=== PATIENT | female | born 2000 | race Caucasian/White ===

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

== ENCOUNTER → 2018-01-04 | Outpatient (CLI) | payer OTHER | LOC: M RAD 10:05 | DX: N92.0 Excessive and frequent menstruation with regular cycle (principal) ==

== ENCOUNTER → 2018-11-01 | Outpatient (CLI) | payer OTHER ==
[2018-11-01 11:23] LABS: BASO # 0.1 10^3/uL (0.0-0.2); BASO % 1.1 % (0.0-1.0); EOS # 0.5 10^3/uL (0.0-0.50); EOS % 7.9 % (0.0-3.0); HEMATOCRIT 38.1 % (36.0-47.0); HEMOGLOBIN 12.7 g/dl (12.0-15.5); LYMPH # 2.2 10^3/uL (1.5-6.5); MEAN CORPUSCULAR HEMOGLOBIN 29.3 pg (27.0-33.0); MEAN CORPUSCULAR HGB CONC 33.3 g/dl (32.0-36.5); MEAN CORPUSCULAR VOLUME 87.8 fl (80.0-96.0); MONO # 0.3 10^3/uL (0.0-0.8); MONO % 4.9 % (0.0-5.0); NEUTROPHILS # 3.5 10^3/uL (1.8-7.7); NEUTROPHILS % 52.8 % (36.0-66.0); PLATELET COUNT, AUTOMATED 370 10^3/uL (150-450); RED BLOOD COUNT 4.34 10^6/uL (4.00-5.40); WHITE BLOOD COUNT 6.6 10^3/uL (4.0-10.0)
== END ==
LOC: M LAB 10:58
PROVIDERS: ATTEND Physician Assistant
DX: N92.0 Excessive and frequent menstruation with regular cycle (principal)

== ENCOUNTER → 2019-01-29 | Outpatient (CLI) | payer OTHER ==
--- NOTE | 2019-01-29 09:51 | REP ---
MAXILLOFACIAL CT WITHOUT CONTRAST: HISTORY: Chronic maxillary sinusitis. COMPARISON: 03/09/2016 The patient is status post partial right uncinectomy. Minimal mucosal thickening is present in the ethmoid, maxillary and sphenoid sinuses. Mild mucosal thickening is present in the left frontal sinus. The right frontal sinus is clear. Mucosal thickening involves the left ostiomeatal unit. The middle and inferior nasal turbinates are partially paradoxical. There is shazia bullosa of the middle nasal turbinates. The nasal septum is midline. The cribriform plate, medial alves of the orbits and optic canals are intact. The carotid canals form a segment of the posterolateral alves of the sphenoid sinus. The sphenoid sinus septa insert into the internal carotid canal alves. IMPRESSION: 1. Postoperative change as described above. 2. Sinus mucosal thickening as described above. Electronically Signed by Jair Rosen MD 01/29/2019 10:07 A
== END ==
LOC: M RAD 09:10
PROVIDERS: ATTEND Otolaryngology
DX: J34.89 Other specified disorders of nose and nasal sinuses (principal)

== ENCOUNTER 2019-06-25 10:49 | Day surgery (SDC) | payer OTHER ==
[~2019-06-25] VITALS: Ht 170.2 cm; Wt 83.9 kg
[~2019-06-25 10:49] MED LIST: ARIP1TAB4 PO; CETI10CH PO; CLONI1TA PO; DEPO150I IM; DOCU100C16 PO; FLON1SPR; FLUO20CA8 PO; IBUP80TA PO; LIDOCAINE 1% MDV 20ML VIAL SQ PRN; LR 1,000 ML IV ONE; RANI1TAB38 PO; SYMB16INH INH; VENTAER INH; VYVA20CA PO
[2019-06-25 12:51] LABS: HCG, SERUM QUALITATIVE NEGATIVE (NEGATIVE)
[2019-06-25] MEDS ORDERED: dexameTHASONE 4 MG/ML 1ML VIAL (J1100) As Ordered ONE (12:58)
[2019-06-25] MEDS ORDERED: ONDANSETRON 4MG/2ML VIAL (J2405) As Ordered ONE (12:58)
[2019-06-25] MEDS ORDERED: LIDOCAINE 2% INJ 100 MG/5 ML SDV (FOR ANES.) As Ordered ONE (12:58)
[2019-06-25] MEDS ORDERED: PROPOFOL 200 MG/20 ML VIAL As Ordered ONE (12:58)
[2019-06-25] MEDS ORDERED: ROCURONIUM BROMIDE 50 MG/5 ML VIAL As Ordered ONE (12:58)
[2019-06-25] MEDS ORDERED: fentaNYL 100 MCG/2 ML INJECTION (J3010) As Ordered ONE (12:59)
[2019-06-25] MEDS ORDERED: MIDAZOLAM INJ 2 MG/2 ML VIAL (J2250) As Ordered ONE (12:59)
[2019-06-25] MEDS ORDERED: HYDROmorphone HCL 2 MG/ML 1ML VIAL (J1170) As Ordered ONE (14:21)
[2019-06-25] MEDS ORDERED: METOCLOPRAMIDE INJ 10MG/2ML VIAL (J2765) As Ordered ONE (14:22)
[2019-06-25] MEDS ORDERED: ACETAMINOPHEN 1000MG 100ML IV BTL (OFIRMEV) (J0131 PER 10MG) As Ordered ONE (14:24)
[2019-06-25] MEDS ORDERED: METHYLENE BLUE 0.5% (5MG/ML) 10 ML AMP (PROVAYBLUE)(Q9968 PER 1MG) As Ordered ONE (15:07)
[2019-06-25] MEDS ORDERED: SODIUM CHLORIDE 0.9% NASAL GEL 15GM (AYR) As Ordered ONE (15:09)
[2019-06-25] MEDS ORDERED: LIDOCAINE W/EPINEPHRINE 1% 20ML VIAL As Ordered ONE (15:09)
[2019-06-25] MEDS ORDERED: EPINEPHrine INJ 1 MG/ML 1ML AMP As Ordered ONE (15:09)
[2019-06-25] MEDS ORDERED: EPINEPHrine 1MG/ML INJ 30ML MD-VIAL As Ordered ONE (15:11)
[2019-06-25] MEDS ORDERED: SCOPOLAMINE 1MG TRANSDERMAL PATCH As Ordered ONE (15:30)
[2019-06-25] MEDS ORDERED: SCOPOLAMINE 1MG TRANSDERMAL PATCH TOP ONE (15:45)
[2019-06-25] MEDS ORDERED: SUGAMMADEX SODIUM 500 MG/5 ML VIAL (BRIDION) As Ordered ONE ×2 (16:56→17:21)
[2019-06-25] MEDS ORDERED: fentaNYL 100 MCG/2 ML INJECTION (J3010) IV PRN (18:15)
[2019-06-25] MEDS ORDERED: PERCOCET 5MG/325MG TAB PO PRN (18:15)
[2019-06-25] MEDS ORDERED: LR 1,000 ML IV SCH (18:15)
[2019-06-25] MEDS ORDERED: ONDANSETRON 4MG/2ML VIAL (J2405) IV PRN (18:15)
[2019-06-25] MEDS ORDERED: PERCOCET 5MG/325MG TAB As Ordered ONE (18:16)
[2019-06-25 18:40] VITALS: BP 126/56
--- NOTE | 2019-07-17 08:30 | RO ---
DATE OF PROCEDURE: 06/25/2019 PREOPERATIVE DIAGNOSES: 1. Chronic maxillary sinusitis. 2. Chronic ethmoid sinusitis. 3. Chronic frontal sinusitis. 4. Chronic rhinitis. 5. Hypertrophy of the inferior nasal turbinates. POSTOPERATIVE DIAGNOSES: 1. Chronic maxillary sinusitis. 2. Chronic ethmoid sinusitis. 3. Chronic frontal sinusitis. 4. Chronic rhinitis. 5. Hypertrophy of the inferior nasal turbinates. PROCEDURE PERFORMED: 1. Stereotactic surgery using the Brainlab system. 2. Bilateral endoscopic frontal sinusotomy using the balloon. 3. Bilateral endoscopic anterior ethmoidectomy. 4. Bilateral endoscopic maxillary antrostomy using the balloon as well as removal of the uncinate process remnants. 5. Bilateral inferior nasal turbinate Coblation. SURGEON: Dr. Cal Pressley METALSMITH APPRENTICE: ANESTHESIA: General. CLINICAL PREAMBLE: This 18-year-old woman has had endoscopic sinus surgery done at another hospital a few years ago. She developed recurrent sinus symptoms. CT scan of the sinuses revealed evidence of chronic rhinosinusitis. Physical examination revealed inferior nasal turbinate hypertrophy. Management options, including surgery listed above, have been discussed. The patient understood and consented to the procedure. OPERATING ROOM (OR) NARRATION: The patient was identified in preoperative holding and brought to the operating room in stable condition. In supine position on the operating table, patient was prepped and draped in the usual fashion for the procedure. The headband for the Brainlab system was attached to the forehead. Good surface matching was obtained between the test probe and the Brainlab system. At this time, both sides of the nasal cavity were packed using pledgets soaked in 1:1000 epinephrine. The pledgets were removed after a waiting period; both sides of the nasal cavity were inspected using 0-degree nasoendoscope. Uncinate process remnants were noted. Hypertrophy of the inferior nasal turbinate was also found. The anterior surface of the inferior middle nasal turbinates were infiltrated, both the right and left sides of the nasal cavity. The right frontal recess was carefully probed using the Acclarent balloon system. Illuminated guide was successfully introduced into the right frontal sinus cavity. There was positive illumination of the right frontal sinus. The balloon was advanced into the frontal recess area. Balloon was then inflated to 12 atmospheric pressure for 5 seconds. The frontal sinus was then irrigated using warm saline solution. At this time, the diseased anterior ethmoid air cells in the right nasal cavity were then successfully identified and resected using Blakesley forceps. Remnant of the right uncinate process was noted and then resected as well. The right maxillary antrum was identified using the balloon as well. The right maxillary sinus cavity was illuminated. The balloon was advanced into the right maxillary and then inflated to 12 atmospheric pressure for 5 seconds. After the successful dilation, the right maxillary sinus was then irrigated with warm saline solution as well. The same procedure was carried out to perform the left frontal sinusotomy with dilation using the balloon as well. The diseased left anterior ethmoid air cells were resected. The remnant of the left uncinate process was removed as well. Left maxillary antrostomy was successfully performed using the balloon, followed by irrigation of the left maxillary sinus. At this time, the Reflex Coblation wand was used to coblate the right inferior nasal turbinate in the submucosal plane. Three passes were made. The right inferior nasal turbinate was then outfractured as well. The same procedure was carried to coblate the left inferior nasal turbinate in the submucosal plane as well. The Propel stent was then successfully placed into the left and the right ostiomeatal complexes. At the end of the procedure, sponge and instrument counts were correct. No complication was encountered. Estimated blood loss was approximately 50 mL. General anesthesia was reversed, and patient was extubated and brought to the recovery room in stable condition.
== END 2019-06-25 19:19 | disposition home or self-care (01) ==
LOC: M SDC 10:49
PROVIDERS: ATTEND Otolaryngology
DX: J32.0 Chronic maxillary sinusitis (principal); J32.1 Chronic frontal sinusitis; J32.2 Chronic ethmoidal sinusitis; J34.3 Hypertrophy of nasal turbinates; J31.0 Chronic rhinitis; J45.909 Unspecified asthma, uncomplicated; F31.9 Bipolar disorder, unspecified; F90.9 Attention-deficit hyperactivity disorder, unspecified type; Z79.51 Long term (current) use of inhaled steroids; Z79.899 Other long term (current) drug therapy; F41.9 Anxiety disorder, unspecified
CPT/HCPCS: 30802; 31254; 31267; 31296; 84703; C2625; J0131; J1100; J1170; J2250; J2405; J2765; J3010; Q9968

== ENCOUNTER 2019-08-04 13:50 | Emergency (ER) | payer OTHER ==
[~2019-08-04] VITALS: Ht 170.2 cm; Wt 84.3 kg
[~2019-08-04 13:50] MED LIST changes: -LIDOCAINE 1% MDV 20ML VIAL SQ PRN; -LR 1,000 ML IV ONE
--- NOTE | 2019-08-04 16:41 | ECGEPIP ---
[facility] - ED Test Date: 2019-08-04 Pat Name: TANIA REIS Department: Room: - Gender: Female Building Cleaner: DEO : 2000 Requested By: MEHNAZ Alegria PA-C Order Number: [id number] Reading MD: Susi Posadas Measurements Intervals Laverne Rate: 100 P: 61 ME: 134 QRS: 57 QRSD: 87 T: 27 QT: 341 QTc: 440 Interpretive Statements SINUS TACHYCARDIA ABNORMAL RHYTHM ECG NSTTW abnormalities NO PRIOR Electronically Signed on 08-04-2019 16:40:54 EST by Susi Posadas
[2019-08-04 17:09] LABS: AMPHETAMINES LEVEL URINE NEGATIVE (NEGATIVE); BARBITURATES URINE NEGATIVE (NEGATIVE); BENZODIAZEPINES URINE NEGATIVE (NEGATIVE); CANNABINOIDS URINE NEGATIVE (NEGATIVE); COCAINE METABOLITE URINE NEGATIVE (NEGATIVE); METHADONE URINE NEGATIVE (NEGATIVE); OPIATES URINE NEGATIVE (NEGATIVE); PHENCYCLIDINE URINE NEGATIVE (NEGATIVE)
[2019-08-04 17:22] LABS: BASO # 0.1 10^3/uL (0.0-0.2); BASO % 0.6 % (0.0-1.0); EOS # 0.5 10^3/uL (0.0-0.5); EOS % 5.5 % (0.0-3.0); HEMATOCRIT 42.1 % (36.0-47.0); HEMOGLOBIN 13.9 g/dl (12.0-15.5); LYMPH # 2.8 10^3/uL (1.5-5.0); LYMPH % 29.6 % (24.0-44.0); MEAN CORPUSCULAR HEMOGLOBIN 29.4 pg (27.0-33.0); MONO # 0.6 10^3/uL (0.0-0.8); MONO % 6.6 % (0.0-5.0); NEUTROPHILS # 5.5 10^3/uL (1.5-8.5); NEUTROPHILS % 57.4 % (36.0-66.0); PLATELET COUNT, AUTOMATED 395 10^3/uL (150-450); RED BLOOD COUNT 4.73 10^6/uL (4.00-5.40); WHITE BLOOD COUNT 9.6 10^3/uL (4.0-10.0)
[2019-08-04 17:38] LABS: BLOOD UREA NITROGEN 9 MG/DL (7-18); CALCIUM LEVEL 9.3 MG/DL (8.5-10.1); CARBON DIOXIDE LEVEL 23 MEQ/L (21-32); CHLORIDE LEVEL 111 MEQ/L (98-107); CK-MB VALUE MASS < 1.0 NG/ML (<3.6); CPK CREATINE PHOSPHOKINASE 74 U/L (26-192); CREATININE FOR GFR 0.72 MG/DL (0.55-1.30); ETHYL ALCOHOL (ETHANOL) < 0.003 % (0.000-0.010); FREE T4 1.14 NG/DL (0.78-1.33); GLUCOSE, FASTING 81 MG/DL (70-100); MAGNESIUM LEVEL 2.3 MG/DL (1.8-2.4); MB/CK RELATIVE INDEX 1.35 (< OR =4); SODIUM LEVEL 143 MEQ/L (136-145); TROPONIN I < 0.02 NG/ML (< 0.10)
--- NOTE | 2019-08-04 17:54 | REPVR ---
PROCEDURE INFORMATION: Exam: CT Head Without Contrast Exam date and time: 08/04/2019 5:25 PM Clinical history: 18 years old, female; Dizziness; Additional info: New onset dizziness, near syncope TECHNIQUE: Imaging protocol: Computed tomography of the head without contrast. Radiation optimization: All CT scans at this facility use at least one of these dose optimization techniques: automated exposure control; mA and/or kV adjustment per patient size (includes targeted exams where dose is matched to clinical indication); or iterative reconstruction. COMPARISON: CT BRAIN LAB SINUSES 01/29/2019 9:21 AM FINDINGS: Brain: There is no evidence of intracranial bleed. There is no evidence of mass effect. The ratliff-white differentiation appears preserved. Ventricles: Ventricles are normal in size. Bones/joints: There is no evidence of fracture. Sinuses: There is mild mucosal thickening in the left ethmoid sinus region. Mastoid air cells: Clear mastoid air cells bilaterally. Soft tissues: Unremarkable. IMPRESSION: Normal appearing CT scan of the brain. Electronically signed by: Kevin Browning On 08/04/2019 17:54:23 PM
[2019-08-04 18:55] VITALS: BP 121/71
[2019-08-04] MEDS ORDERED: MACR100C43 PO (18:55)
[2019-08-04] MEDS ORDERED: NITROFURANTOIN (MACROBID) 100 MG CAP PO ONE (19:00)
== END 2019-08-04 19:21 | disposition home or self-care (01) ==
LOC: M ED 13:50
DX: R42 Dizziness and giddiness (principal); R55 Syncope and collapse; R00.0 Tachycardia, unspecified; R94.31 Abnormal electrocardiogram [ECG] [EKG]; J45.909 Unspecified asthma, uncomplicated; F41.9 Anxiety disorder, unspecified; F32.9 Major depressive disorder, single episode, unspecified; F90.9 Attention-deficit hyperactivity disorder, unspecified type; Z79.899 Other long term (current) drug therapy
CPT/HCPCS: 70450; 80048; 80307; 81001; 82550; 82553; 83735; 84439; 84443; 84702; 85025; 87086; 93005; 99284; G0480

== ENCOUNTER 2020-11-11 15:22 | Emergency (ER) | payer OTHER ==
[~2020-11-11] VITALS: Ht 170.2 cm; Wt 84.8 kg
[~2020-11-11 15:22] MED LIST changes: +FLUO20CA20 PO; -FLUO20CA8 PO; +MACR100C43 PO
--- OUTSIDE RECORDS SUMMARY | 2020-11-11 15:27 | CCD ---
Author Author [facility] Organization [facility] Address Unknown Phone Unavailable Care Team Providers Care Hide Salter Name Role Phone Pleskach, Lyly CASH CHECKER Unavailable Unavailable Pleskach, Lyly CASH CHECKER Unavailable Unavailable Pleskach, Lyly CASH CHECKER Unavailable Unavailable Pleskach, Lyly CASH CHECKER Unavailable Unavailable Pleskach, Lyly CASH CHECKER Unavailable Unavailable Pleskach, Lyly CASH CHECKER Unavailable Unavailable Pleskach, Lyly CASH CHECKER Unavailable Unavailable Pleskach, Lyly CASH CHECKER Unavailable Unavailable Pleskach, Lyly CASH CHECKER Unavailable Unavailable Pleskach, Lyly CASH CHECKER Unavailable Unavailable Pleskach, Lyly CASH CHECKER Unavailable Unavailable Pleskach, Lyly CASH CHECKER Unavailable Unavailable Pleskach, Lyly CASH CHECKER Unavailable Unavailable Pleskach, Lyly CASH CHECKER Unavailable Unavailable Pleskach, Lyly CASH CHECKER Unavailable Unavailable Pleskach, Lyly CASH CHECKER Unavailable Unavailable Pleskach, Lyly CASH CHECKER Unavailable Unavailable Pleskach, Lyly CASH CHECKER Unavailable Unavailable Pleskach, Lyly CASH CHECKER Unavailable Unavailable Pleskach, Lyly CASH CHECKER Unavailable Unavailable Pleskach, Lyly CASH CHECKER Unavailable Unavailable Pleskach, Lyly CASH CHECKER Unavailable Unavailable Pleskach, Lyly CASH CHECKER Unavailable Unavailable Pleskach, Lyly CASH CHECKER Unavailable Unavailable Pleskach, Lyly CASH CHECKER Unavailable Unavailable Pleskach, Lyly CASH CHECKER Unavailable Unavailable Pleskach, Lyly CASH CHECKER Unavailable Unavailable Pleskach, Lyly CASH CHECKER Unavailable Unavailable Pleskach, Lyly CASH CHECKER Unavailable Unavailable Pleskach, Lyly CASH CHECKER Unavailable Unavailable BROWN, L EDEN Unavailable Unavailable CORY, ANDERS BENEDICT PA Unavailable Unavailable CORY, ANDERS BENEDICT PA Unavailable Unavailable CORY, ANDERS BENEDICT PA Unavailable Unavailable CORY, ANDERS BENEDICT PA Unavailable Unavailable CORY, ANDERS BENEDICT PA Unavailable Unavailable CORY, ANDERS BENEDICT PA Unavailable Unavailable CORY, ANDERS BENEDICT PA Unavailable Unavailable CORY, ANDERS BENEDICT PA Unavailable Unavailable CORY, ANDERS BENEDICT PA Unavailable Unavailable CORY, ANDERS BENEDICT PA Unavailable Unavailable CORY, ANDERS BENEDICT PA Unavailable Unavailable CORY, ANDERS BENEDICT PA Unavailable Unavailable CORY, ANDERS BENEDICT PA Unavailable Unavailable CORY, ANDERS BENEDICT PA Unavailable Unavailable CORY, ANDERS BENEDICT PA Unavailable Unavailable CORY, ANDERS BENEDICT PA Unavailable Unavailable CORY, ANDERS BENEDICT PA Unavailable Unavailable CORY, ANDERS BENEDICT PA Unavailable Unavailable CORY, ANDERS BENEDICT PA Unavailable Unavailable CORY, ANDERS BENEDICT PA Unavailable Unavailable CORY, ANDERS BENEDICT PA Unavailable Unavailable DESJARLAIS, JULIETA CUSTOMER CONTACT SPECIALIST Unavailable Unavailable DESJARLAIS, JULIETA CUSTOMER CONTACT SPECIALIST Unavailable Unavailable DESJARLAIS, JULIETA CUSTOMER CONTACT SPECIALIST Unavailable Unavailable DESJARLAIS, JULIETA CUSTOMER CONTACT SPECIALIST Unavailable Unavailable DESJARLAIS, JULIETA CUSTOMER CONTACT SPECIALIST Unavailable Unavailable DESJARLAIS, JULIETA CUSTOMER CONTACT SPECIALIST Unavailable Unavailable DESJARLAIS, JULIETA CUSTOMER CONTACT SPECIALIST Unavailable Unavailable DESJARLAIS, JULIETA CUSTOMER CONTACT SPECIALIST Unavailable Unavailable DESJARLAIS, JULIETA CUSTOMER CONTACT SPECIALIST Unavailable Unavailable Yaworski, Lata CUSTOMER CONTACT SPECIALIST Unavailable Unavailable Yaworski, Lata CUSTOMER CONTACT SPECIALIST Unavailable Unavailable Yaworski, Lata CUSTOMER CONTACT SPECIALIST Unavailable Unavailable Yaworski, Lata CUSTOMER CONTACT SPECIALIST Unavailable Unavailable Yaworski, Lata CUSTOMER CONTACT SPECIALIST Unavailable Unavailable Yaworski, Lata CUSTOMER CONTACT SPECIALIST Unavailable Unavailable Yaworski, Lata CUSTOMER CONTACT SPECIALIST Unavailable Unavailable Yaworski, Lata CUSTOMER CONTACT SPECIALIST Unavailable Unavailable Yaworski, Lata CUSTOMER CONTACT SPECIALIST Unavailable Unavailable Yaworski, Lata CUSTOMER CONTACT SPECIALIST Unavailable Unavailable Yaworski, Lata CUSTOMER CONTACT SPECIALIST Unavailable Unavailable Yaworski, Lata CUSTOMER CONTACT SPECIALIST Unavailable Unavailable Yaworski, Lata CUSTOMER CONTACT SPECIALIST Unavailable Unavailable Yaworski, Lata CUSTOMER CONTACT SPECIALIST Unavailable Unavailable Yaworski, Lata CUSTOMER CONTACT SPECIALIST Unavailable Unavailable Yaworski, Lata CUSTOMER CONTACT SPECIALIST Unavailable Unavailable Yaworski, Lata CUSTOMER CONTACT SPECIALIST Unavailable Unavailable Yaworski, Lata CUSTOMER CONTACT SPECIALIST Unavailable Unavailable Yaworski, Lata CUSTOMER CONTACT SPECIALIST Unavailable Unavailable Yaworski, Lata CUSTOMER CONTACT SPECIALIST Unavailable Unavailable Yaworski, Lata CUSTOMER CONTACT SPECIALIST Unavailable Unavailable Yaworski, Lata CUSTOMER CONTACT SPECIALIST Unavailable Unavailable Yaworski, Lata CUSTOMER CONTACT SPECIALIST Unavailable Unavailable Yaworski, Lata CUSTOMER CONTACT SPECIALIST Unavailable Unavailable Re-disclosure Warning The records that you are about to access may contain information from federally-assisted alcohol or drug abuse programs. If such information is present, then the following federally mandated warning applies: This information has been disclosed to you from records protected by federal confidentiality rules (42 CFR part 2). The federal rules prohibit you from making any further disclosure of this information unless further disclosure is expressly permitted by the written consent of the person to whom it pertains or as otherwise permitted by 42 CFR part 2. A general authorization for the release of medical or other information is NOT sufficient for this purpose. The Federal rules restrict any use of the information to criminally investigate or prosecute any alcohol or drug abuse patient.The records that you are about to access may contain highly sensitive health information, the redisclosure of which is protected by Article 27-F of the [facility] Public Health law. If you continue you may have access to information: Regarding HIV / AIDS; Provided by facilities licensed or operated by the [facility] Office of Mental Health; or Provided by the [facility] Office for People With Developmental Disabilities. If such information is present, then the following [facility] mandated warning applies: This information has been disclosed to you from confidential records which are protected by state law. State law prohibits you from making any further disclosure of this information without the specific written consent of the person to whom it pertains, or as otherwise permitted by law. Any unauthorized further disclosure in violation of state law may result in a fine or assisted sentence or both. A general authorization for the release of medical or other information is NOT sufficient authorization for further disc losure. Family History Family Member Name Family Member Gender Family Member Status Date o f Status Description Data Source(s) Unknown Unknown Problem MED[facility] ([facility]) mother/mother's side Unknown Unknown Problem MED[facility] ([facility]) Unknown Male Problem [facility] ([facility] Encounters Encounter Providers Location Date Indications Data Source(s ) Outpatient Attender: JULIETA ALEMAN NP 11/04/2020 10: 00:00 AM [facility] ([facility]) enter Nurse Visit [id number] 09/13/2020 12:00:00 AM EST eCW1 (Formerly [facility]) Outpatient Attender: JULIETA ALEMAN NP 09/01/2020 10: 47:00 AM [facility] Outpatient Attender: JULIETA ALEMAN NP 07/16/2020 03: 40:00 PM [facility] Outpatient Attender: JULIETA ALEMAN NP 06/16/2020 11: 40:00 AM [facility] Outpatient Attender: EDEN JONES 06/03/2020 11:00:00 AM [facility] Outpatient Attender: JULIETA ALEMAN NP 05/11/2020 10: 00:00 AM [facility] ([facility]) WCenter Nurse Visit [address] [place] [phone] 03/24/2020 12:00:00 AM EDT eCW1 ([facility]ly [facility]) Outpatient Attender: Lyly Vega [facility] Main Office 03/01/2020 0 2:20:00 PM EDT MEDENT ([facility] [address] [place] [address] 12/31/2019 12:00:00 AM EDT eCW1 ([facility]) Outpatient Attender: JULIETA ALEMAN NP 12/26/2019 11: 20:00 AM [facility] [address] [place] [address] 11/24/2019 12:00:00 AM EST eCW1 ([facility]) Outpatient Attender: JULIETA ALEMAN CUSTOMER CONTACT SPECIALIST 11/06/2019 01: 20:00 PM [facility] [address] [place] [address] 10/13/2019 12:00:00 AM EST eCW1 ([facility]) Outpatient Attender: JULIETA ALEMAN CUSTOMER CONTACT SPECIALIST 08/14/2019 10: 57:00 AM [facility] Outpatient Attender: JULIETA ALEMAN CUSTOMER CONTACT SPECIALIST 07/03/2019 10: 00:00 AM [facility] Outpatient Attender: JULIETA ALEMAN CUSTOMER CONTACT SPECIALIST 04/24/2019 08: 56:00 AM [facility] Emergency Attender: BENEDICT RAY PAReferrer: Jeremi Tariq NP EMERGENCY ROOM-ER 05/28/2018 02:57:00 PM EDT - 05/28/2018 07:35:00 PM [facility] Immunizations Vaccine Date Status Description Data Source(s) Depo-Provera 150mg/1mL (Medroxy-Progestrone Acetate) 11:04:00 AM EST completed eCW1 ([facility]) Depo-Provera 150mg/1mL (Medroxy-Progestrone Acetate) 09:14:00 AM EDT completed eCW1 ([facility]) Depo-Provera 150mg/1mL (Medroxy-Progestrone Acetate) 09:14:00 AM EDT completed eCW1 ([facility]) Depo-Provera 150mg/1mL (Medroxy-Progestrone Acetate) 09:16:00 AM EDT completed eCW1 ([facility]) Depo-Provera 150mg/1mL (Medroxy-Progestrone Acetate) 09:16:00 AM EDT completed eCW1 ([facility]) Depo-Provera 150mg/1mL (Medroxy-Progestrone Acetate) 020 09:39:00 AM EST completed eCW1 ([facility]) Depo-Provera 150mg/1mL (Medroxy-Progestrone Acetate) 020 09:39:00 AM EST completed eCW1 ([facility]) Medications Medication Brand Name Start Date Product Form Dose Route Admi nistrative Instructions Pharmacy Instructions Status Indications Reaction Description Data Source(s) Clobetasol Propionate E Clobetasol Propionate E 03/01/2020 12:00:00 A M EDT active MEDENT ([facility] Insurance Providers Payer name Policy type / Coverage type Policy ID Covered alliance party ID Covered alliance party's relationship to monahan Policy Monahan Plan Information [facility] [id number] SP [id number] [facility] [id number] SP [id number] [facility] [id number] CHILD [id number] [facility] MEDICAID [id number] S [id number] [facility] [id number] S [id number] [facility] MEDICAID [id number] S [id number] [facility] MEDICAID [id number] S [id number] [facility] [id number] CHILD [id number] [facility] [id number] FA2 [id number] [facility] [id number] SP [id number] [facility] [place] [id number] S [id number] [facility] [id number] SP [id number] [facility] [id number] SP [id number] [facility] Health Maintenance Organization (O) [id number] Self [id number] [facility] Community [facility] Commercial [id number] Self [id number] [facility] [id number] S [id number] MEDICAID [id number] S [id number] [facility] Health Maintenance Organization (HMO) [id number] Self [id number] [facility] [id number] SP [id number] [facility] Health Maintenance Organization (HMO) [id number] Self [id number] [facility] Community Plan Commercial [id number] Self [id number] [facility] Health Maintenance Organization (HMO) [id number] Self [id number] [facility] Community Plan Commercial [id number] Self [id number] [facility] [id number] S [id number] [employer] MEDICAID UNAVAILABLE S UNAVAILABLE ANSI-Medicaid [id number] ANSI-Medicaid [id number] ANSI-Commercial [id number] MEDICAID [id number] S [id number] ANSI-Medicaid [id number] ANSI-Medicaid [id number] ANSI-Commercial [id number] ANSI-Medicaid [id number] ANSI-Medicaid [id number] ANSI-Commercial [id number] ANSI-Medicaid [id number] ANSI-Medicaid [id number] ANSI-Commercial [id number] Mariel [id number] [facility] MEDICAID [id number] Mariel [id number] [facility] MEDICAID PI PI PI PI [facility] SERVICES [id number] CHILD [id number] [facility] [id number] ANSI-Commercial [id number] ANSI-Medicaid [id number] [facility] O [id number] S [id number] PENDING SALE TO [facility] [id number] SP [id number] [facility] [id number] SP [id number] [facility] Health Maintenance Organization (HMO) [id number] Self [id number] [facility] FEDERAL SERVICES [facility] [id number] PARENT [id number] [facility] [id number] FA2 [id number] [facility] [id number] F [id number] MEDICAID [id number] SP [id number] Problems, Conditions, and Diagnoses Code Display Name Description Problem Type Effective Dates Data Source(s) F90.0 Attention-deficit hyperactivity disorder , predominantly inattentive type ATTN-DEFCT HYPERACTIVITY DISORDER, PREDOM INATTENTIVE TYPE Diagnosis 09/01/2020 10:47:00 AM [facility] 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 OTHER OBSESS RENZO-COMPULSIVE DISORDER Diagnosis 07/16/2020 03:40:00 PM [facility] F42.4 EXCORIATION (SKIN-PICKING) DISORDER EXCORIATION (SKIN-PICKING) DISORDER Diagnosis 06/16/2020 11:40:00 AM [facility] F40.10 Social phobia, unspecified SOCIAL PHOBIA, UNSPECIFIED Diagnosis 05/11/2020 10:00:00 AM [facility] F90.9 Attention-deficit hyperactivity disorder , unspecified type ATTENTION- DEFICIT HYPERACTIVITY DISORDER, UNSPECIFIED TYPE Diagnosis 05/11 10:00:00 AM [facility] Surgeries/Procedures Procedure Description Date Indications Data Source(s) Injection, medroxyprogesterone acetate for contraceptive use , 150 mg 09/13/2020 12:00:00 AM EST eC1 ([facility]) Injection, medroxyprogesterone acetate for contraceptive use , 150 mg 03/24/2020 12:00:00 AM EDT eCW1 ([facility]) Injection, medroxyprogesterone acetate, 1 mg 0 12:00:00 AM EDT eC1 (On License Of [facility]) THER/PROPH/DIAG INJ, SC/IM 12/31/2019 12:00:00 AM EDT eCW1 (On License Of [facility]) Results ID Date Data Source [id number] 10/16/2020 12:00:00 AM EST [facility] Name Value Range Interpretation Code Description Data Almaz rce(s) Supporting Document(s) SARS coronavirus 2 RNA [Presence] in Res piratory specimen by EDMOND with probe detection NEGATIVE [facility] This lab was ordered by Estephania Pabon and reported by ethology. ID Date Data Source [id number] 10/16/2020 12:00:00 AM EST [facility] Name Value Range Interpretation Code Description Data Almaz rce(s) Supporting Document(s) Carestart Rapid COVID Antigen Test Negative [facility] This lab was reported by Estephania [facility] Procedure Social History Code Duration Value Status Description Data Source(s ) Smoking 03/01/2020 12:00:00 AM EDT Patient has never smoked co mpleted Patient has never smoked [facility] ([facility] Smoking 10/13/2019 12:00:00 AM EST Never Smoker completed Never S moker eCW1 (On [facility]) Smoking 10/13/2019 12:00:00 AM EST Never Smoker completed Never S moker eCW1 (On [facility] Of [facility]) Vital Signs ID Date Data Source UNK Name Value Range Interpretation Code Description Data Source(s) Body mass index (BMI) [Ratio] 26.4 kg/m2 26.4 k g/m2 [facility] ([facility] Oxygen saturation in Arterial blood by Pulse oximetry 98 % 98 % [facility] ([facility] Body weight 171.00 [lb_av] 171.00 [lb_av] MEDEN T ([facility] Body height 67.5 [in_i] 67.5 [in_i] [facility] ([facility] 5'7.50" Respiratory rate 17 /min 17 /min [facility] ( [facility] Body temperature 99.6 [degF] 99.6 [degF] [facility] ([facility] Heart rate 122 /min 122 /min [facility] ([facility] Diastolic blood pressure 81 mm[Hg] 81 mm[Hg] [facility] ([facility] Systolic blood pressure 122 mm[Hg] 122 mm[Hg] M EDENT ([facility]
--- OUTSIDE RECORDS SUMMARY | 2020-11-11 15:27 | CCD ---
Author Author [facility] Organization [facility] Address Unknown Phone Unavailable Care Team Providers Care Museum Attendant Name Role Phone TusharValdeza Unavailable PROBLEMS Type Condition ICD9-CM Code ZLB72-MG Code Onset Dates Condition S tatus SNOMED Code Notes Problem Environmental allergies Z91.09 Active 32168344 7 Problem Nasal polyp J33.9 Active 24848030 Problem Dysmenorrhea in adolescent N94.6 Active 07254 9000 Problem Menorrhagia with regular cycle N92.0 Active 2 55203744 Problem Screening-pulmonary TB Z11.1 Active 841361568 Problem Premenstrual syndrome N94.3 Active 49811782 Problem Exercise-induced asthma J45.990 Active 27303349 Problem Insomnia, unspecified type G47.00 Active 26387 2001 Problem Depression F32.9 Active 14804227 Problem Allergic rhinitis due to pollen, unspecified rhi nitis seasonality J30.1 Active 00115598 Problem Allergic rhinitis due to other allergen J30.89 Active 52035746 Problem Episodic tension-type headache, not intractable G4 4.219 Active 136519379 Problem Chronic allergic rhinitis J30.9 Active 082296 04 ALLERGIES No Known Allergies ENCOUNTERS from 1998 to 2020-09-13 Encounter Location Date Provider Diagnosis [facility] [place] [address] Aug, Lashawn Finley Encounter for Depo-P rovera contraception Z30.42 IMMUNIZATIONS Vaccine Route Administration Date Status Meningococcal B (VFC) 0.5mL (Bexsero) IM Intramuscular March 28, 2017 Administered Depo-Provera 150mg/1mL (Medroxy-Progestrone Acetate) IM Intr amuscular Sep 13, 2020 Administered Depo-Provera 150mg/1mL (Medroxy-Progestrone Acetate) IM Intr amuscular March 24, 2020 Administered Depo-Provera 150mg/1mL (Medroxy-Progestrone Acetate) IM Intr amuscular December 31, 2019 Administered Depo-Provera 150mg/1mL (Medroxy-Progestrone Acetate) IM Intr amuscular Oct 13, 2019 Administered Meningococcal IM Intramuscular January 01, 2017 Administered SOCIAL HISTORY Tobacco Use: Social History Observation Description Date Details (start date - stop date) Never Smoker Sex Assigned At : Social History Observation Description Sex Assigned At Unknown Education: Question Answer Notes Level of Education: Not Finished College Student [employer] Language: Question Answer Notes Languages spoken: Croatian Voodoo: Question Answer Notes Voodoo 33 None No methodist beliefs that would impact health care. Sexual Hx: Question Answer Notes Had sex in the last 12 months (vaginal, oral, or anal)? No LMP: 10/01/2016 Have you ever had an STD? No Alcohol Screening: Question Answer Notes Did you have a drink containing alcohol in the past year? No Points 0 Interpretation Negative Tobacco Use: Question Answer Notes Are you a: never smoker REASON FOR REFERRAL No Information VITAL SIGNS No information MEDICATIONS Medication SIG (Take, Route, Frequency, Duration) Notes Start Da te End Date Status Xyzal 5 MG 1 tablet in the evening Orally Once a day Active FLUoxetine HCl 20 MG 2 capsules at bedtime Orally Once a day for 30 day(s) Aug, Active Ibuprofen 800 MG 1 tablet with food or milk a s needed Orally Three times a day for 30 Active Ranitidine HCl 150 MG TAKE ONE TABLET BY MOUTH AT BEDTIME for 30 Active Ibuprofen 800 mg TAKE ONE TABLET BY MOUTH THR EE TIMES A DAY NEEDED WITH FOOD OR MILK DURING MONTHLY MENSES for 90 Active Pocket Spacer - as directed with albuterol i nhaler orally (J45.990) every 4 hours as needed for 30 day(s) Mar, Ac tive ProAir HFA 108 (90 Base) MCG/ACT 2 puffs as needed Inh alation every 4 hrs (J45.990) for 30 day(s) Mar, Active Fluoxetine HCl 20 MG TAKE TWO CAPSULES (40MG)BY M OUTH EVERY MORNING ONCE A DAY for 30 Active Fluticasone Propionate 50 MCG/ACT 1 spray in each nostril Nasall y twice a day Active Symbicort 80-4.5 MCG/ACT 2 puffs Inhalation Twice a day- from allergi st Active TraZODone HCl 50 MG 1 tablet at bedtime as neede d Orally Once a day for 30 day(s) Mar, Active Levonorgest-Eth Estrad 91-Day 0.15-0.03 MG TAKE ONE TA BLET BY MOUTH EVERY DAY for 91 Active Colace 100 MG 1 capsule Orally bid for 30 day(s) Nov, 018 Active Azelastine HCl 137 MCG/SPRAY 1 puff in each nostril Nasally Twice a d ay Active PROCEDURES from 1998 to 2020-09-13 Procedure Date Ordered Result Body Site Medication: Depo-Provera 150mg/1mL IM (Medroxyprogesterone A cetate) 2020-09-13 N/A RESULTS No Results REASON FOR VISIT DEPO MEDICAL (GENERAL) HISTORY Type Description Date Medical History Depression and anxiety Medical History Allergies Medical History exercise induced asthma Surgical History T&A 2005 Surgical History nasal surgery 05/11/16 Hospitalization History Surgery Goals Section No Information Health Concerns No Information MEDICAL EQUIPMENT No Information MENTAL STATUS No Information FUNCTIONAL STATUS No Information ASSESSMENTS Encounter Date Diagnosis Assessment Notes Treatment Notes Treatm ent Clinical Notes Aug, Encounter for Depo-Provera contraception (ICD-10 - Z30.42) PLAN OF TREATMENT Medication Medication Name Sig Start Date Stop Date Ibuprofen 800 mg TAKE ONE TABLET BY MOUTH THR EE TIMES A DAY NEEDED WITH FOOD OR MILK DURING MONTHLY MENSES for 90 Levonorgest-Eth Estrad 91-Day 0.15-0.03 MG TAKE ONE TA BLET BY MOUTH EVERY DAY for 91 Ranitidine HCl 150 MG TAKE ONE TABLET BY MOUTH AT BEDTIME for 30 Ibuprofen 800 MG 1 tablet with food or milk a s needed Orally Three times a day for 30 Fluoxetine HCl 20 MG TAKE TWO CAPSULES (40MG)BY M OUTH EVERY MORNING ONCE A DAY for 30 FLUoxetine HCl 20 MG 2 capsules at bedtime Orally Once a day for 30 day(s) Aug, Next Appt Details Provider Name:Lashawn Finley, 2020-11-29 08:30:00 AM, [address] [place], [address], Insurance Providers Payer Name Payer Address Payer Phone Insured Name Patient Relati onship to Insured Coverage Start Date Coverage End Date [facility] [address] [facility] [address] TANIA REIS self
--- OUTSIDE RECORDS SUMMARY | 2020-11-11 16:11 | CCD ---
Author Author [facility] Organization [facility] Address Unknown Phone Unavailable Care Team Providers Care Skiagrapher Name Role Phone Pleskach, Lyly ADMISSIONS NURSE Unavailable Unavailable Pleskach, Lyly ADMISSIONS NURSE Unavailable Unavailable Pleskach, Lyly ADMISSIONS NURSE Unavailable Unavailable Pleskach, Lyly ADMISSIONS NURSE Unavailable Unavailable Pleskach, Lyly ADMISSIONS NURSE Unavailable Unavailable Pleskach, Lyly ADMISSIONS NURSE Unavailable Unavailable Pleskach, Lyly ADMISSIONS NURSE Unavailable Unavailable Pleskach, Lyly ADMISSIONS NURSE Unavailable Unavailable Pleskach, Lyly ADMISSIONS NURSE Unavailable Unavailable Pleskach, Lyly ADMISSIONS NURSE Unavailable Unavailable Pleskach, Lyly ADMISSIONS NURSE Unavailable Unavailable Pleskach, Lyly ADMISSIONS NURSE Unavailable Unavailable Pleskach, Lyly ADMISSIONS NURSE Unavailable Unavailable Pleskach, Lyly ADMISSIONS NURSE Unavailable Unavailable Pleskach, Lyly ADMISSIONS NURSE Unavailable Unavailable Pleskach, Lyly ADMISSIONS NURSE Unavailable Unavailable Pleskach, Lyly ADMISSIONS NURSE Unavailable Unavailable Pleskach, Lyly ADMISSIONS NURSE Unavailable Unavailable Pleskach, Lyly ADMISSIONS NURSE Unavailable Unavailable Pleskach, Lyly ADMISSIONS NURSE Unavailable Unavailable Pleskach, Lyly ADMISSIONS NURSE Unavailable Unavailable Pleskach, Lyly ADMISSIONS NURSE Unavailable Unavailable Pleskach, Lyly ADMISSIONS NURSE Unavailable Unavailable Pleskach, Lyly ADMISSIONS NURSE Unavailable Unavailable Pleskach, Lyly ADMISSIONS NURSE Unavailable Unavailable Pleskach, Lyly ADMISSIONS NURSE Unavailable Unavailable Pleskach, Lyly ADMISSIONS NURSE Unavailable Unavailable Pleskach, Lyly ADMISSIONS NURSE Unavailable Unavailable Pleskach, Lyly ADMISSIONS NURSE Unavailable Unavailable Pleskach, Lyly ADMISSIONS NURSE Unavailable Unavailable BROWN, L EDEN Unavailable Unavailable [...] ANDERS BENEDICT PA Unavailable Unavailable DESJARLAIS, JULIETA BATTERY CHARGER CONVEYOR LINE Unavailable Unavailable DESJARLAIS, JULIETA BATTERY CHARGER CONVEYOR LINE Unavailable Unavailable DESJARLAIS, JULIETA BATTERY CHARGER CONVEYOR LINE Unavailable Unavailable DESJARLAIS, JULIETA BATTERY CHARGER CONVEYOR LINE Unavailable Unavailable DESJARLAIS, JULIETA BATTERY CHARGER CONVEYOR LINE Unavailable Unavailable DESJARLAIS, JULIETA BATTERY CHARGER CONVEYOR LINE Unavailable Unavailable DESJARLAIS, JULIETA BATTERY CHARGER CONVEYOR LINE Unavailable Unavailable DESJARLAIS, JULIETA BATTERY CHARGER CONVEYOR LINE Unavailable Unavailable DESJARLAIS, JULIETA BATTERY CHARGER CONVEYOR LINE Unavailable Unavailable Yaworski, Lata BATTERY CHARGER CONVEYOR LINE Unavailable Unavailable Yaworski, Lata BATTERY CHARGER CONVEYOR LINE Unavailable Unavailable Yaworski, Lata BATTERY CHARGER CONVEYOR LINE Unavailable Unavailable Yaworski, Lata BATTERY CHARGER CONVEYOR LINE Unavailable Unavailable Yaworski, Lata BATTERY CHARGER CONVEYOR LINE Unavailable Unavailable Yaworski, Lata BATTERY CHARGER CONVEYOR LINE Unavailable Unavailable Yaworski, Lata BATTERY CHARGER CONVEYOR LINE Unavailable Unavailable Yaworski, Lata BATTERY CHARGER CONVEYOR LINE Unavailable Unavailable Yaworski, Lata BATTERY CHARGER CONVEYOR LINE Unavailable Unavailable Yaworski, Lata BATTERY CHARGER CONVEYOR LINE Unavailable Unavailable Yaworski, Lata BATTERY CHARGER CONVEYOR LINE Unavailable Unavailable Yaworski, Lata BATTERY CHARGER CONVEYOR LINE Unavailable Unavailable Yaworski, Lata BATTERY CHARGER CONVEYOR LINE Unavailable Unavailable Yaworski, Lata BATTERY CHARGER CONVEYOR LINE Unavailable Unavailable Yaworski, Lata BATTERY CHARGER CONVEYOR LINE Unavailable Unavailable Yaworski, Lata BATTERY CHARGER CONVEYOR LINE Unavailable Unavailable Yaworski, Lata BATTERY CHARGER CONVEYOR LINE Unavailable Unavailable Yaworski, Lata BATTERY CHARGER CONVEYOR LINE Unavailable Unavailable Yaworski, Lata BATTERY CHARGER CONVEYOR LINE Unavailable Unavailable Yaworski, Lata BATTERY CHARGER CONVEYOR LINE Unavailable Unavailable Yaworski, Lata BATTERY CHARGER CONVEYOR LINE Unavailable Unavailable Yaworski, Lata BATTERY CHARGER CONVEYOR LINE Unavailable Unavailable Yaworski, Lata BATTERY CHARGER CONVEYOR LINE Unavailable Unavailable Yaworski, Lata BATTERY CHARGER CONVEYOR LINE Unavailable Unavailable Re-disclosure Warning The records that [...] is protected by Article 27-F of the [facility] Public Health law. If you continue you may have access to information: Regarding HIV / AIDS; Provided by facilities licensed or operated by the [facility] Office of Mental Health; or Provided by the [facility] Office for People With Developmental Disabilities. If such information is present, then the following [facility] mandated warning applies: This information has been [...] law may result in a fine or group home sentence or both. A general authorization for the release of medical or other information is NOT sufficient authorization for further disc losure. Family History Family Member Name Family Member Gender Family Member Status Date o f Status Description Data Source(s) Unknown Unknown Problem MEDENT ([facility]) mother/mother's side Unknown Unknown Problem MEDENT ([facility]) Unknown Male Problem [facility] ([facility] Encounters Encounter Providers Location Date Indications Data Source(s ) Outpatient Attender: JULIETA ALEMAN NP 11/04/2020 10: 00:00 AM [facility] ([facility]Center Nurse Visit [address] [place] [address] 09/13/2020 12:00:00 AM EST eCW1 ([facility]) Outpatient Attender: JULIETA ALEMAN NP 09/01/2020 10: 47:00 AM [facility] Outpatient Attender: JULIETA ALEMAN NP 07/16/2020 03: 40:00 PM [facility] Outpatient Attender: JULIETA ALEMAN NP 06/16/2020 11: 40:00 AM [facility] Outpatient Attender: EDEN JONES 06/03/2020 11:00:00 AM [facility] Outpatient Attender: JULIETA ALEMAN NP 05/11/2020 10: 00:00 AM [facility] ([facility]) WCenter Nurse Visit [address] [place] [address] 03/24/2020 12:00:00 AM EDT eCW1 ([facility]) Outpatient Attender: Lyly Vega [facility] Main Office 03/01/2020 0 2:20:00 PM EDT MEDENT ([facility] [address] [place] [address] 12/31/2019 12:00:00 AM EDT eCW1 ([facility]) Outpatient Attender: JULIETA ALEMAN NP 12/26/2019 11: 20:00 AM [facility] [address] [place] [address] 11/24/2019 12:00:00 AM EST eCW1 ([facility]) Outpatient Attender: JULIETA ALEMAN BATTERY CHARGER CONVEYOR LINE 11/06/2019 01: 20:00 PM [facility] [address] [place] [address] 10/13/2019 12:00:00 AM EST eCW1 ([facility]) Outpatient Attender: JULIETA ALEMAN BATTERY CHARGER CONVEYOR LINE 08/14/2019 10: 57:00 AM [facility] Outpatient Attender: JULIETA ALEMAN BATTERY CHARGER CONVEYOR LINE 07/03/2019 10: 00:00 AM [facility] Outpatient Attender: JULIETA ALEMAN BATTERY CHARGER CONVEYOR LINE 04/24/2019 08: 56:00 AM [facility] Emergency Attender: BENEDICT RAY PAReferrer: Jeremi Tariq NP EMERGENCY ROOM-ER 05/28/2018 02:57:00 PM EDT - 05/28/2018 07:35:00 PM [facility] Immunizations Vaccine Date Status Description Data Source(s) Depo-Provera 150mg/1mL (Medroxy-Progestrone Acetate) 11:04:00 AM EST completed eCW1 ([facility]) Depo-Provera 150mg/1mL (Medroxy-Progestrone Acetate) 09:14:00 AM EDT completed eCW1 ([facility]) Depo-Provera 150mg/1mL (Medroxy-Progestrone Acetate) 09:14:00 AM EDT completed eCW1 ([facility]) Depo-Provera 150mg/1mL (Medroxy-Progestrone Acetate) 09:16:00 AM EDT completed eCW1 ([facility]) Depo-Provera 150mg/1mL (Medroxy-Progestrone Acetate) 09:16:00 AM EDT completed eCW1 ([facility]) Depo-Provera 150mg/1mL (Medroxy-Progestrone Acetate) 020 09:39:00 AM EST completed eCW1 ([facility]) Depo-Provera 150mg/1mL (Medroxy-Progestrone Acetate) 020 09:39:00 AM EST completed eCW1 ([facility]) Medications Medication Brand Name Start Date Product Form Dose Route Admi nistrative Instructions Pharmacy Instructions Status Indications Reaction Description Data Source(s) Clobetasol Propionate E Clobetasol Propionate E 03/01/2020 12:00:00 A M EDT active MEDENT ([facility] Insurance Providers Payer name Policy type / Coverage type Policy ID Covered constitution party ID Covered constitution party's relationship to monahan Policy Monahan Plan Information [facility] [id number] SP [id number] [place] [id number] SP [id number] [facility] [id number] SP [id number] [facility] [id number] CHILD [id number] [facility] MEDICAID [id number] S [id number] [facility] [id number] S [id number] [facility] MEDICAID [id number] S [id number] [facility] MEDICAID [id number] S [id number] [facility] WPS [id number] CHILD [id number] [facility] [id number] FA2 [id number] [facility] [id number] SP [id number] [facility] [place] [id number] S [id number] [place] [id number] SP [id number] [facility] [id number] SP [id number] [facility] Health Maintenance Organization (HMO) [id number] Self [id number] [facility] Community Plan Commercial [id number] Self [id number] [facility] [id number] S [id number] MEDICAID [id number] S [id number] [facility] Health Maintenance Organization (HMO) [id number] Self [id number] [facility] Health Maintenance Organization (HMO) [id number] Self [id number] [facility] Community Plan Commercial [id number] Self [id number] [facility] Health Maintenance Organization (HMO) [id number] Self [id number] [facility] Community Plan Commercial [id number] Self [id number] [facility] [id number] S [id number] [facility] MEDICAID UNAVAILABLE S UNAVAILABLE ANSI-Medicaid [id number] ANSI-Medicaid [id number] ANSI-Commercial [id number] MEDICAID [id number] S [id number] ANSI-Medicaid [id number] ANSI-Medicaid [id number] ANSI-Commercial [id number] ANSI-Medicaid [id number] ANSI-Medicaid [id number] ANSI-Commercial [id number] ANSI-Medicaid [id number] ANSI-Medicaid [id number] ANSI-Commercial [id number] Mariel [id number] [facility] MEDICAID [id number] Mariel [id number] [facility] MEDICAID PI PI PI PI [facility] [id number] CHILD [id number] [facility] [id number] ANSI-Commercial [id number] ANSI-Medicaid [id number] [facility] O [id number] S [id number] [facility] [id number] SP [id number] [facility] [id number] SP [id number] [facility] Health Maintenance Organization (HMO) [id number] Self [id number] [facility]ALTH [facility] FEDERAL SERVICES [facility] [id number] PARENT [id number] [facility] [id number] FA2 [id number] [facility] [id number] F [id number] MEDICAID [id number] SP [id number] Problems, Conditions, and Diagnoses Code Display Name Description Problem Type Effective Dates Data Source(s) F90.0 Attention-deficit hyperactivity disorder , predominantly inattentive type ATTN-DEFCT HYPERACTIVITY DISORDER, PREDOM INATTENTIVE TYPE Diagnosis 09/01/2020 10:47:00 AM [facility] 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 OTHER OBSESS RENZO-COMPULSIVE DISORDER Diagnosis 07/16/2020 03:40:00 PM [facility] F42.4 EXCORIATION (SKIN-PICKING) DISORDER EXCORIATION (SKIN-PICKING) DISORDER Diagnosis 06/16/2020 11:40:00 AM [facility] F40.10 Social phobia, unspecified SOCIAL PHOBIA, UNSPECIFIED Diagnosis 05/11/2020 10:00:00 AM [facility] F90.9 Attention-deficit hyperactivity disorder , unspecified type ATTENTION- DEFICIT HYPERACTIVITY DISORDER, UNSPECIFIED TYPE Diagnosis 05/11 10:00:00 AM [facility] Surgeries/Procedures Procedure Description Date Indications Data Source(s) Injection, medroxyprogesterone acetate for contraceptive use , 150 mg 09/13/2020 12:00:00 AM EST eC1 ([facility]) Injection, medroxyprogesterone acetate for contraceptive use , 150 mg 03/24/2020 12:00:00 AM EDT eC1 ([facility]) Injection, medroxyprogesterone acetate, 1 mg 0 12:00:00 AM EDT eC1 ([facility]) THER/PROPH/DIAG INJ, SC/IM 12/31/2019 12:00:00 AM EDT eCW1 ([facility]) Results ID Date Data Source [id number] 10/16/2020 12:00:00 AM EST [facility] Name Value Range Interpretation Code Description Data Almaz rce(s) Supporting Document(s) SARS coronavirus 2 RNA [Presence] in Res piratory specimen by EDMOND with probe detection NEGATIVE [facility] This lab was ordered by Estephania Pabon and reported by [employer]. ID Date Data Source [id number] 10/16/2020 12:00:00 AM EST [facility] Name Value Range Interpretation Code Description Data Almaz rce(s) Supporting Document(s) Carestart Rapid COVID Antigen Test Negative [facility] This lab was reported by Estephania [facility]. Procedure Social History Code Duration Value Status Description Data Source(s ) Smoking 03/01/2020 12:00:00 AM EDT Patient has never smoked co mpleted Patient has never smoked [facility] ([facility] Smoking 10/13/2019 12:00:00 AM EST Never Smoker completed Never S moker eCW1 ([facility]) Smoking 10/13/2019 12:00:00 AM EST Never Smoker completed Never S moker eCW1 ([facility]) Vital Signs ID Date Data Source UNK [...]
[2020-11-11] MEDS ORDERED: METH36TA5 (16:18)
[2020-11-11] MEDS ORDERED: BUPR300T92 (16:18)
[2020-11-11 17:47] LABS: BASO # 0.1 10^3/uL (0.0-0.2); BASO % 0.6 % (0.0-1.0); EOS # 0.2 10^3/uL (0.0-0.5); EOS % 2.6 % (0.0-3.0); HEMATOCRIT 40.6 % (36.0-47.0); HEMOGLOBIN 13.4 g/dl (12.0-15.5); LYMPH # 2.2 10^3/uL (1.5-5.0); LYMPH % 24.3 % (24.0-44.0); MEAN CORPUSCULAR HEMOGLOBIN 29.5 pg (27.0-33.0); MEAN CORPUSCULAR VOLUME 89.4 fl (80.0-96.0); MONO # 0.6 10^3/uL (0.0-0.8); MONO % 6.9 % (0.0-5.0); NEUTROPHILS # 5.8 10^3/uL (1.5-8.5); NEUTROPHILS % 65.3 % (36.0-66.0); PLATELET COUNT, AUTOMATED 336 10^3/uL (150-450); RED BLOOD COUNT 4.54 10^6/uL (4.00-5.40); WHITE BLOOD COUNT 8.8 10^3/uL (4.0-10.0)
--- NOTE | 2020-11-11 18:05 | REPVR ---
PROCEDURE INFORMATION: Exam: CT Head Without Contrast Exam date and time: 11/11/2020 5:48 PM Age: 20 years old Clinical indication: Syncope and collapse TECHNIQUE: Imaging protocol: Computed tomography of the head without contrast. Radiation optimization: All CT scans at this facility use at least one of these dose optimization techniques: automated exposure control; mA and/or kV adjustment per patient size (includes targeted exams where dose is matched to clinical indication); or iterative reconstruction. COMPARISON: CT Head without contrast 08/04/2019 5:28 PM FINDINGS: Brain: Normal. No hemorrhage. Unremarkable white matter. No mass effect. Cerebral ventricles: No ventriculomegaly. Bones/joints: Unremarkable. No acute fracture. Paranasal sinuses: Visualized sinuses are unremarkable. No fluid levels. Mastoid air cells: Visualized mastoid air cells are well aerated. Soft tissues: Unremarkable. IMPRESSION: No acute intracranial abnormality. Electronically signed by: Reina Disla On 11/11/2020 18:06:02 PM
--- NOTE | 2020-11-11 18:11 | REPVR ---
PROCEDURE INFORMATION: Exam: CT Cervical Spine Without Contrast Exam date and time: 11/11/2020 5:48 PM Age: 20 years old Clinical indication: Other: Syncope TECHNIQUE: Imaging protocol: Computed tomography images of the cervical spine without contrast. Radiation optimization: All CT scans at this facility use at least one of these dose optimization techniques: automated exposure control; mA and/or kV adjustment per patient size (includes targeted exams where dose is matched to clinical indication); or iterative reconstruction. COMPARISON: No relevant prior studies available. FINDINGS: Bones/joints: There is mild reversal the normal cervical lordosis. No acute fracture or dislocation. Discs/Spinal canal/Neural foramina: No significant spinal canal stenosis or neural foraminal narrowing. Lungs: Lung apices are normal. Soft tissues: Unremarkable. IMPRESSION: No acute fracture or dislocation in the cervical spine. Electronically signed by: Reina Disla On 11/11/2020 18:10:50 PM
[2020-11-11 18:17] LABS: BLOOD UREA NITROGEN 12 MG/DL (7-18); CALCIUM LEVEL 9.1 MG/DL (8.5-10.1); CARBON DIOXIDE LEVEL 25 MEQ/L (21-32); CHLORIDE LEVEL 109 MEQ/L (98-107); CK-MB VALUE MASS < 1.0 NG/ML (<3.6); CPK CREATINE PHOSPHOKINASE 186 U/L (26-192); CREATININE FOR GFR 0.87 MG/DL (0.55-1.30); FREE T4 0.97 NG/DL (0.76-1.46); GLOMERULAR FILTRATION RATE > 60.0 (>60); GLUCOSE, FASTING 79 MG/DL (70-100); MAGNESIUM LEVEL 2.3 MG/DL (1.8-2.4); MB/CK RELATIVE INDEX 0.54 (< OR =4); POTASSIUM SERUM 3.9 MEQ/L (3.5-5.1); SODIUM LEVEL 143 MEQ/L (136-145); THYROID STIMULATING HORMONE 0.946 uIU/ML (0.358-3.740); TROPONIN I < 0.02 NG/ML (< 0.10)
[2020-11-11] MEDS ORDERED: ACETAMINOPHEN 500 MG TAB PO ONE (18:30)
[2020-11-11] MEDS ORDERED: NS 1,000 ML IV ONE (18:30)
--- NOTE | 2020-11-11 19:39 | ECGEPIP ---
[facility] - ED Test Date: 2020-11-11 Pat Name: TANIA REIS Department: Room: - Gender: Female Console Operator: : 2000 Requested By: MEHNAZ Alegria PA-C Order Number: [id number] Reading MD: Cornelio Gottlieb Measurements Intervals [place] Rate: 118 P: 74 OK: 122 QRS: 64 QRSD: 90 T: 23 QT: 308 QTc: 431 Interpretive Statements Poor data quality, interpretation may be adversely affected Sinus tachycardia Nonspecific T wave abnormality SIMILAR TO 08/04/19 Electronically Signed on 11-11-2020 19:39:21 EST by Cornelio Gottlieb
[2020-11-11] MEDS ORDERED: MACR100C43 PO (20:50)
[2020-11-11 20:58] VITALS: BP 129/76
== END 2020-11-11 21:10 | disposition home or self-care (01) ==
LOC: M ED 15:22
DX: R55 Syncope and collapse (principal); R00.0 Tachycardia, unspecified; N39.0 Urinary tract infection, site not specified; J45.909 Unspecified asthma, uncomplicated; F41.9 Anxiety disorder, unspecified; F32.9 Major depressive disorder, single episode, unspecified; Z79.899 Other long term (current) drug therapy

== ENCOUNTER → 2020-12-08 | Outpatient (CLI) | payer OTHER ==
[~2020-12-08] MED LIST changes: +BUPR300T92; +METH36TA5
[2020-12-09 06:07] LABS: MUMPS VIRUS IgG ANTIBODY 29.7 AU/mL (Immune >10.9); RUBEOLA IgG ANTIBODY 28.2 AU/mL (Immune >16.4)
== END ==
LOC: M LAB 08:06
PROVIDERS: ATTEND Nurse Practitioner Family
DX: Z00.00 Encounter for general adult medical examination without abnormal findings (principal)

== ENCOUNTER → 2021-05-10 | Outpatient (REF) | payer OTHER | LOC: M SFHCWAGY 13:29 | PROVIDERS: ATTEND Advanced Practice Midwife | DX: Z12.4 Encounter for screening for malignant neoplasm of cervix (principal) ==

== ENCOUNTER → 2025-05-04 | Outpatient (CLI) | payer OTHER ==
[~2025-05-04] MED LIST changes: +BUPR-766; -BUPR300T92; +FLUO-96 PO; -FLUO20CA20 PO; +METH36TA13; -METH36TA5
[2025-05-04 09:29] LABS: ALT/SGPT 21 U/L (7.0-40); AST/SGOT 18 U/L (<34); CALCIUM LEVEL 9.8 MG/DL (8.5-10.1); CARBON DIOXIDE LEVEL 24 MMOL/L (20-31); CHLORIDE LEVEL 107 MMOL/L (98-107); CHOLESTEROL LEVEL 163 MG/DL (<200); CHOLESTEROL RISK RATIO 4.85 (<5); CREATININE FOR GFR 0.69 MG/DL (0.55-1.30); GLOMERULAR FILTRATION RATE > 90.0 (>60); LDL CHOLESTEROL 112.0 MG/DL (<100); NON-HDL-C 129.4 MG/DL; POTASSIUM SERUM 4.4 MMOL/L (3.5-5.1); SODIUM LEVEL 141 MMOL/L (136-145); TRIGLYCERIDES LEVEL 87 MG/DL (<150)
[2025-05-04 09:31] LABS: TOTAL 25(OH) VITAMIN D 15.4 NG/ML (20.0-100.0)
[2025-05-04 09:52] LABS: ESTIMATED AVERAGE GLUCOSE 100.0 MG/DL (60-110)
== END ==
LOC: M LAB 07:28
PROVIDERS: ATTEND Student in an Organized Health Care Education/Training Program
DX: E55.9 Vitamin D deficiency, unspecified (principal); Z68.41 Body mass index [BMI] 40.0-44.9, adult